=== PATIENT | male | born 1985 | race Caucasian/White ===

== ENCOUNTER 2018-10-05 10:19 | Emergency (ER) | payer MEDICARE ==
[~2018-10-05] VITALS: Ht 172.7 cm; Wt 121.3 kg
[2018-10-05] MEDS ORDERED: ALEVE220 MG PO (10:34)
== END 2018-10-05 12:25 | disposition home or self-care (01) ==
LOC: ED 10:19
DX: R04.0 Epistaxis (principal); F17.200 Nicotine dependence, unspecified, uncomplicated; Z79.899 Other long term (current) drug therapy
CPT/HCPCS: 99283